=== PATIENT | male | born 1995 | race Caucasian/White ===

== ENCOUNTER → 2022-04-23 13:07 | Outpatient (ROUT) | payer OTHER, SELFPAY ==
[2022-04-23 14:10] LABS: COVID-19 CEPHEID PCR (VTM/NP) Negative (Negative)
== END ==
PROVIDERS: PCP Physician Assistant; Visit Provider Otolaryngology
DX: Z20.822 Contact with and (suspected) exposure to COVID-19 (principal); J34.89 Other specified disorders of nose and nasal sinuses; J34.2 Deviated nasal septum; J34.3 Hypertrophy of nasal turbinates; R43.8 Other disturbances of smell and taste; J32.4 Chronic pansinusitis
CPT/HCPCS: U0003; U0005

== ENCOUNTER 2022-04-25 12:45 | Day surgery (SDC) | payer OTHER, SELFPAY ==
[2022-04-25] VITALS (7 sets, daily range): BP systolic 109–157; BP diastolic 62–97; PULSE 47–71; RESP 11–30; TEMP 36.3–36.9; O2SAT 96–100; BMI 25.6
[2022-04-25] MEDS: LACTATED RINGERS 1,000 ML 42 ML IV ×2 (12:57→17:00)
[2022-04-25] MEDS: OXYMETAZOLINE NASAL SPRAY 15 ML 2 SPRAYS NASAL (12:57)
--- NOTE | 2022-04-25 13:10 | PM.PREOP ---
Pre-operative Note Interval Note History & Physical reviewed/Exam performed by Physician: Yes Changes to H&P: No
--- NOTE | 2022-04-25 13:11 | PM.OP.1 ---
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 Septoplasty 2. Left diego bullosa resection 3. Bilateral inferior turbinate reduction via intramural cautery Same procedure as scheduled: Yes Indications: 26-year-old male with the above diagnoses incompletely managed with medical therapy presents for the above procedures. Following discussion of the material risks benefits complications and alternatives, he elected to proceed. Surgeon: Titi Reyna Click Yes if Unassisted: Yes Anesthesia Type: General and Local Operative Notes Findings: 2+ left anterior septal deviation, primarily right mid and high posterior deviation. LEFT anterior flap perforation during dissection, RIGHT flap entirely intact. LEFT > RIGHT ITH Estimated Blood Loss (mL): 110 Procedure in detail: Following identification and confirmation of consent as well as preoperative Afrin nasal spray, the patient was brought to the operating room suite and placed in the supine position. General endotracheal anesthesia was administered. I infiltrated the septum widely bilaterally with 1% lidocaine 1 100,000 epinephrine followed by temporary packing with cotton with Afrin and 4% lidocaine. Following sterile prep and drape, the packing was removed and I performed a right rica-transfixion incision, elevated the right mucoperichondrial and mucoperiosteal flap. I disarticulated near the bony/cartilaginous junction and elevated the left mucoperiosteal flap. Deviated portions of the perpendicular plate of the ethmoid and vomer were resected. The residual quadrilateral cartilage was further straightened by trimming it inferiorly as well as reducing the maxillary crest. A 2 mm strip of cartilage paralleling the residual 1 cm dorsal and caudal strut was resected to further straighten the quadrilateral cartilage. The hemitransfixion incision was closed with interrupted 5 0 chromic followed by a running 4 0 plain gut mattress suture to reapproximate the septal flaps, with care to close the LEFT anterior flap perforation. The head of each inferior turbinate had been previously infiltrated with additional local anesthetic and a 25 gauge spinal needle was used to impale the length of the turbinate, with cautery on a setting of 15 activated on slow withdrawal over 2 passes each side. The turbinates were then outfractured. Under endoscopic guidance the posterior and anterior superior insertion of the left middle turbinate was then infiltrated with additional local anesthetic via spinal needle. The lateral portion of the middle turbinate representing the lateral wall the diego bullosa was resected with the microdebrider and forceps, with suction electrocautery on 10 for hemostasis. At case completion, 20/1000th of an inch silastic splints were placed bilaterally, sutured anteriorly with a single 4 0 nylon. The procedure completed, sponge and needle counts were correct and the patient was extubated in the operating room and taken to recovery room in stable condition without known complication. Complications: none Post-operative Condition: stable Disposition: same day surgery Plan for aftercare: Nasal saline every hour while awake, begin irrigations t.i.d. tomorrow if desired. Polysporin to the nostrils at all times, Tylenol alternating with Advil for pain control, oxycodone for breakthrough pain. Elevate head of bed, no nose blowing, no straining for 2 weeks. Ice directly under the nose on the upper lip has tolerated 24-48 hours at a minimum. Follow-up in 1 week for nasal splint removal.
--- NOTE | 2022-04-25 16:00 | SUR.OPER ---
Supine on padded OR bed, head on pillow, arms padded and tucked at sides, legs uncrossed, safety belt at thigh, tape over blanket over lower legs .
[2022-04-25] MEDS: LIDOCAINE 4% SOLN 50 ML 20 ML TOP (16:58)
[2022-04-25] MEDS: LIDOCAINE 1% W/EPI 20 ML INJ (16:59)
[2022-04-25] MEDS: BACITRACIN OINT 0.9 GM PCKT 1 APPLIC TOP (17:00)
[2022-04-25] MEDS: OXYCODONE/ACETAMINOPHEN 5/325 TABLET 1 TAB PO (17:43)
== END 2022-04-25 18:18 | disposition home or self-care (01) ==
PROVIDERS: PCP Physician Assistant; Referring Provider Otolaryngology; Visit Provider Otolaryngology
PROC: (CPT 30520; principal; 2022-04-25 14:00)
PROC: (CPT 31231; 2022-04-25 14:00)
DX: J34.2 Deviated nasal septum (principal); J98.8 Other specified respiratory disorders; J34.3 Hypertrophy of nasal turbinates
CPT/HCPCS: 30520; 30802; 31240; A9270; J1100; J2250; J2405; J2704; J3010